=== PATIENT | male | born 1960 ===

== ENCOUNTER 2025-03-05 08:37 | Outpatient (CLI) | payer OTHER | END 2025-03-05 08:38 | disposition home or self-care (01) | LOC: NM 08:37 | PROVIDERS: ATTEND Psychiatry & Neurology Neurology | DX: G20.A1 Parkinson's disease without dyskinesia, without mention of fluctuations (principal); R93.89 Abnormal findings on diagnostic imaging of other specified body structures | CPT/HCPCS: 78803; A9584-JZ ==